=== PATIENT | female | born 2005 | race Two or more races ===

== ENCOUNTER 2024-06-27 17:10 | Emergency (ER) | payer MEDICAID ==
[~2024-06-27] VITALS: Ht 154.9 cm; Wt 100.0 kg
[2024-06-27 20:48] VITALS: BP 129/86; PULSE 103; RESP 18; TEMP 97.8; O2SAT 97
== END 2024-06-27 21:18 | disposition home or self-care (01) ==
LOC: ER 17:10
DX: M25.561 Pain in right knee (principal); Z88.1 Allergy status to other antibiotic agents; W23.0XXA Caught, crushed, jammed, or pinched between moving objects, initial encounter; Y93.89 Activity, other specified; Y92.89 Other specified places as the place of occurrence of the external cause; Y99.8 Other external cause status
CPT/HCPCS: 73562

== ENCOUNTER 2025-01-03 17:32 | Emergency (ER) | payer MEDICAID ==
[~2025-01-03] VITALS: Ht 152.4 cm; Wt 99.7 kg
[2025-01-03 18:36] VITALS: BP 160/94; PULSE 90; RESP 18; TEMP 98; O2SAT 97
--- NOTE | 2025-01-03 19:09 | ED.PDOC ---
Eye-HPI HPI Comments 19-year-old female who came to emergency room for earache. Patient states for the past week she has been experiencing left ear pain, with decrease in hearing, with noted blood oozing out of the left ear. No fever noted. Denies any trauma Chief Complaint: Earache Time Seen by MD: 19:07 Reviewed Notes: Nurses Notes Allergies: Coded Allergies: Azithromycin (Verified Allergy, Unknown, 06/27/24) Information Source: Patient Mode of Arrival: Ambulatory Timing: Hours Duration: Since onset, Days Quality: Pain, Hearing loss ENT Ear Exam: Blood, Perforated Past Medical History PAST MEDICAL HISTORY: Denies Surgical History: Denies all surgeries DIPLOMA DENTAL ASSISTANT History: Denies all DIPLOMA DENTAL ASSISTANT Hx Family History Family History: Reviewed,noncontributory to illness Social History Smoker: Non-Smoker Alcohol: Denies ETOH Use Drugs: Denies Drug Use Lives In: Home Constitutional: denies: chills, diaphoresis, fatigue, fever, malaise, sweats, weakness, others EENTM: reports: ear bleeding, ear pain; denies: blurred vision, double vision, ear discharge, ear drainage, ear ringing, eye pain, eye redness, hearing loss, mouth pain, mouth swelling, nasal discharge, nose bleeding, nose congestion, nose pain, photophobia, tearing, throat pain, throat swelling, voice changes, others Respiratory: denies: cough, hemoptysis, orthopnea, SOB at rest, shortness of breath, SOB with excertion, stridor, wheezing, others Cardiovascular: denies: chest pain, dizzy spells, diaphoresis, Dyspnea on exertion, edema, irregular heart beat, left arm pain, lightheadedness, palpitati ons, PND, syncope, others Gastrointestinal: denies: abdomen distended, abdominal pain, blood streaked bowels, constipated, diarrhea, dysphagia, difficulty swallowing, hematemesis, melena, nausea, poor appetite, poor fluid intake, rectal bleeding, rectal pain, vomiting, others Genitourinary: denies: abnormal vagina bleeding, burning, dyspareunia, dysuria, flank pain, frequency, hematuria, incontinence, pain, , vagina discharge, urgency, others Neurological: denies: dizziness, fainting, headache, left sided numbness, left sided weakness, numbness, paresthesia, pre-existing deficit, right sided numbness, right sided weakness, seizure, speech problems, tingling, tremors, weakness, others Musculoskeletal: denies: back pain, gout, joint pain, joint swelling, muscle pain, muscle stiffness, neck pain, others Integumetry: denies: bruises, change in color, change in hair/nails, dryness, laceration, lesions, lumps, rash, wounds, others Allergic/Immunocompromised: denies: Difficulty Healing, Frequent Infections, Hives, Itching, others Hematologic/Lymphatic: denies: anemia, blood clots, easy bleeding, easy bruisin g, swollen glands, others Endocrine: denies: excessive hunger, excessive sweating, excessive thirst, excessive urination, flushing, intolerance to cold, intolerance to heat, unexplained weight gain, unexplained weight loss, others Psychiatric: denies: anxiety, bipolar disorder, depression, hopeless, panic disorder, schizophrenia, sleepless, suicidal, others Physical Exam General Appearance: No Apparent Distress, Normal HEENT: Normal ENT Inspection, Pharynx Normal, TMs Normal Neck: Full Range of Motion, Non-Tender, Normal, Normal Inspection Respiratory: Chest Non-Tender, Lungs Clear, No Accessory Muscle Use, No Respir atory Distress, Normal Breath Sounds Cardiovascular: No Edema, No JVD, No Murmur, No Gallop, Normal Peripheral Pulses, Regular Rate/Rhythm Breast Exam: Deferred Gastrointestinal: No Organomegaly, Non Tender, No Pulsatile Mass, Normal Bowel Sounds, Soft Genitalia: Deferred Pelvic: Deferred Rectal: Deferred Extremities: No calf tenderness, Normal capillary refill, Normal inspection, Normal range of motion, Non-tender, No pedal edema Musculoskeletal : Apperance: Normal Neurologic: Alert, 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 Was a procedure done?: No EENT DIFF Eye: Other Ear: Cerumen Impaction, Foreign Body, Otitis Externa, Otitis Media, Perforation X-Ray, Labs, Meds, VS Vital Signs Date Time Temp Pulse Resp B/P (MAP) Pulse Ox O2 Delivery O2 Flow Rate FiO2 01/03/25 18:36 98.0 90 18 160/94 (116) 97 Time of 1ST Reevaluation: 19:05 Reevaluation 1ST: Unchanged Patient Education/Counseling: Diagnosis, Treatment Family Education/Counseling: No Family Present Departure 1 Departure Time of Disposition: 19:23 (Patient with a acute otitis media. We will discharge patient with outpatient antibiotic) Impression: Primary Impression: Otitis media Qualified Codes: H66.012 - Acute suppurative otitis media with spontaneous rupture of ear drum, left ear Disposition: HOME / SELF CARE / HOMELESS Condition: Stable Additional Instructions: You have an ear infection with a ruptured eardrum. You were prescribed antibiotics. Please take as directed. For pain you can take the followinam: Ibuprofen 400mg with food Noon: Acetaminophen 1000mg 4pm: Ibuprofen 400mg with food 8pm: Acetaminophen 1000mg You should follow up with your regular doctor within one week to ensure you are doing better. If your symptoms worsen or you have any other concerns then please return to the ER. e-Prescriptions Amoxicillin & Pot Clavulanate (AUGMENTIN TABLET) 875 Mg Tb 875 MG PO BID for 7 Days, #14 TAB Prov: HANNAH AVILES MD 01/03/25 Discharged With: Self Critical Care Note Critical Care Time?: No Stability Stability form required: No Heart Score Heart Score: Heart Score Response (Comments) Value History N/A 0 EKG N/A 0 Age N/A 0 Risk Factors N/A 0 Troponin N/A 0 Total 0 I personally scribed for HANNAH AVILES MD ([email or web address]) on 01/03/25 at 19:09. Electronically submitted by Baltazar Arizmendi [email or web address]). I personally scribed for HANNAH AVILES MD ([email or web address]) on 01/03/25 at 19:14. Heidi ctronically submitted by Baltazar Arizmendi ([email or web address]). HANNAH AVILES MD Jan 03, 2025 19:09
[2025-01-03] MEDS ORDERED: AUG875T PO (19:24)
== END 2025-01-03 19:40 | disposition home or self-care (01) ==
LOC: ER 17:32
DX: H66.92 Otitis media, unspecified, left ear (principal); Z88.1 Allergy status to other antibiotic agents

== ENCOUNTER 2025-01-16 12:16 | Emergency (ER) | payer MEDICAID ==
[~2025-01-16 12:16] MED LIST: AUG875T PO
== END 2025-01-16 12:29 | disposition left against medical advice (07) ==
LOC: ER 12:16
DX: Z76.0 Encounter for issue of repeat prescription (principal); Z53.21 Procedure and treatment not carried out due to patient leaving prior to being seen by health care provider

== ENCOUNTER 2025-04-06 16:45 | Emergency (ER) | payer MEDICAID ==
[~2025-04-06] VITALS: Ht 152.4 cm; Wt 99.9 kg
[2025-04-06] MEDS ORDERED: METH4PAK PO (18:27)
[2025-04-06] MEDS ORDERED: CEFD300C2 PO (18:27)
[2025-04-06] MEDS ORDERED: ALBUAER3 IN (18:27)
--- NOTE | 2025-04-06 18:28 | ED.PDOC ---
Eye-HPI HPI Comments THIS IS A 20-YEAR-OLD FEMALE PRESENTS TO THE ED CHIEF COMPLAINT COLD-LIKE SYMPTOMS COUGH AND LEFT EAR PAIN. PATIENT REPORTS LEFT EAR INFECTION OVER 2 MONTHS AGO SHE FEELS IT HAS NOT RESOLVED SINCE. OVER THE PAST 1 WEEK SHE HAS BEEN HAVING COUGH RUNNY NOSE AND WHEEZING. SHE REPORTS CHILLS BUT DENIES ANY FEVERS MEASURED AT HOME. SHE DOES NOTE HISTORY OF ASTHMA A CHILD DENIES HISTORY OF PNEUMONIA NOTES NO CHEST PAIN DIFFICULTY BREATHING SHORTNESS OF BREATH NAUSEA, VOMITING, ABDOMINAL PAIN RECENT TRAVEL OR RECENT KNOWN ILL CONTACTS. Chief Complaint: Flu like Time Seen by MD: 18:03 Primary Care Provider: NONE Reviewed Notes: Nurses Notes, Medications, Allergies Allergies: Coded Allergies: Azithromycin (Verified Allergy, Unknown, 06/27/24) Home Meds Active Scripts Amoxicillin & Pot Clavulanate (AUGMENTIN TABLET) 875 Mg Tb, 875 MG PO BID for 7 Days, #14 TAB Prov:HANNAH AVILES MD 01/03/25 Information Source: Patient Mode of Arrival: Ambulatory Past Medical History PAST MEDICAL HISTORY: Denies Surgical History: Denies all surgeries REFLEXOLOGIST History: Denies all REFLEXOLOGIST Hx Family History Family History: Reviewed,noncontributory to illness Social History Smoker: Non-Smoker Alcohol: Denies ETOH Use Drugs: Denies Drug Use Lives In: Home Constitutional: reports: chills; denies: diaphoresis, fatigue, fever, malaise, sweats, weakness, others EENTM: reports: ear pain, nasal discharge; denies: blurred vision, double vision, ear bleeding, ear discharge, ear drainage, ear ringing, eye pain, eye redness, hearing loss, mouth pain, mouth swelling, nose bleeding, nose congestion, nose pain, photophobia, tearing, throat pain, throat swelling, voice changes, others Respiratory: reports: cough, wheezing Cardiovascular: denies: chest pain, dizzy spells, diaphoresis, Dyspnea on exertion, edema, irregular heart beat, left arm pain, lightheadedness, palpitations, PND, syncope, others Gastrointestinal: denies: abdomen distended, abdominal pain, blood streaked bowels, constipated, diarrhea, dysphagia, difficulty swallowing, hematemesis, melena, nausea, poor appetite, poor fluid intake, rectal bleeding, rectal pain, vomiting, others Genitourinary: denies: abnormal vagina bleeding, burning, dyspareunia, dysuria, flank pain, frequency, hematuria, incontinence, pain, , vagina discharge, urgency, others Neurological: denies: dizziness, fainting, headache, left sided numbness, left sided weakness, numbness, paresthesia, pre-existing deficit, right sided numbness, right sided weakness, seizure, speech problems, tingling, tremors, weakness, others Musculoskeletal: denies: back pain, gout, joint pain, joint swelling, muscle pain, muscle stiffness, neck pain, others Integumetry: denies: bruises, change in color, change in hair/nails, dryness, laceration, lesions, lumps, rash, wounds, others Allergic/Immunocompromised: denies: Difficulty Healing, Frequent Infections, Hives, Itching, others Hematologic/Lymphatic: denies: anemia, blood clots, easy bleeding, easy bruising, swollen glands, others Endocrine: denies: excessive hunger, excessive sweating, excessive thirst, excessive urination, flushing, intolerance to cold, intolerance to heat, unexplained weight gain, unexplained weight loss, others Psychiatric: denies: anxiety, bipolar disorder, depression, hopeless, panic disorder, schizophrenia, sleepless, suicidal, others Physical Exam General Appearance: No Apparent Distress, Normal HEENT: Pharynx Normal, TM Abnormal (L) (MODERATE ERYTHEMA WITH BULGING TM INTACT NO NOTED DRAINAGE EAR CANAL CLEAR. 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 Was a procedure done?: No EENT DIFF Eye: N/A Ear: Cerumen Impaction, Foreign Body, Otitis Externa, Barotrauma, Otitis Media, Perforation, Dental, Pharyngitis X-Ray, Labs, Meds, VS Vital Signs Date Time Temp Pulse Resp B/P (MAP) Pulse Ox O2 Delivery O2 Flow Rate FiO2 04/06/25 17:32 18 96 Room Air* 0 21 04/06/25 17:28 97.7 96 18 140/88 (105) 96 97.7 X-Ray, Labs, Meds, VS Comment LIKELY BACTERIAL SCRIPT TRIAL OF CEFDINIR, MEDROL DOSEPAK AN ALBUTEROL INHALER FOR THE BRONCHITIS AND RHONCHI AND WHEEZING.. ADVISED TO TAKE MEDICATIONS PRESCRIBED SIDE EFFECTS DISCUSSED. REST INCREASE P.O. FLUIDS WITH ELECTROLYTES [id number] TYLENOL OR MOTRIN NEEDED FOR PAIN OR FEVER PER LABELED DOSING INSTRUCTIONS. FOLLOW UP WITH YOUR PCP IN 2-3 DAYS NECESSARY. ER RETURN PRECAUTIONS GIVEN PATIENT INDICATES UNDERSTANDING AGREES WITH DISCHARGE PLAN OF CARE. Time of 1ST Reevaluation: 18:10 Reevaluation 1ST: Unchanged Time of 2ND Reevaluation: 18:25 Reevaluation 2ND: Improved Patient Education/Counseling: Diagnosis, Treatment, Prognosis, Need For Follow Up Family Education/Counseling: No Family Present Departure 1 Departure Time of Disposition: 18:25 Impression: Primary Impression: Otitis media Qualified Codes: H66.90 - Otitis media, unspecified, unspecified ear Additional Impression: Bronchitis Disposition: 01 HOME / SELF CARE / HOMELESS Condition: Stable e-Prescriptions Albuterol Sulfate (VENTOLIN MDI) 90 Mcg Ih 90 MCG IN Q6HP PRN for 14 Days, #1 INHALER Prov: DIPESH ANTONY 04/06/25 Methylprednisolone (Medrol Dosepak) 4 Mg Monty 4 MG PO UD for 6 Days, #21 TAB UAD Prov: DIPESH ANTONY PAPER CAP MACHINE OPERATOR 04/06/25 Cefdinir (Cefdinir) 300 Mg Cap 1 CAP PO BID for 7 Days, #14 CAP Prov: DIPESH ANTONYP 04/06/25 Discharged With: Self Critical Care Note Critical Care Time?: No Stability Stability form required: DIPESH Armas April 06, 2025 18:28
[2025-04-06 18:51] VITALS: BP 125/78; PULSE 74; RESP 12; TEMP 98.5; O2SAT 99
== END 2025-04-06 18:50 | disposition home or self-care (01) ==
LOC: ER 16:45
DX: J40 Bronchitis, not specified as acute or chronic (principal); H66.92 Otitis media, unspecified, left ear; Z88.1 Allergy status to other antibiotic agents

== ENCOUNTER 2025-08-24 20:10 | Inpatient (IN) | payer MEDICAID ==
[~2025-08-24] VITALS: Ht 152.4 cm; Wt 104.3 kg
[2025-08-24] MEDS ORDERED: MORPHINE SULFATE 4 MG/ML SYR/VIAL IV ONE (20:45)
[2025-08-24 21:38] LABS: Albumin 4.2 g/dL (3.2-4.8); Anion Gap 13 (5-15); BUN/Creatinine Ratio 17.8 (10.0-20.0); Blood Urea Nitrogen 13 mg/dL (9-23); Calcium 9.3 mg/dL (8.7-10.4); Carbon Dioxide 23 mmol/L (20-31); Hematocrit 41.4 % (36.0-46.0); Hemoglobin 14.4 g/dL (12.2-16.2); Lipase 40 U/L (12-53); Mean Corpuscular Hemoglobin 27.4 pg (28.0-32.0); Mean Corpuscular Volume 78.7 fL (80.0-100.0); Nucleated Red Blood Cells % 0.1 %; Potassium 4.2 mmol/L (3.5-5.1); Total Protein 7.1 g/dL (5.7-8.2)
[2025-08-24 21:39] LABS: Bilirubin, Total 0.5 mg/dL (0.2-1.0)
[2025-08-24 21:42] LABS: Alanine Aminotransferase 58 U/L (7-40); Alkaline Phosphatase 133 U/L (46-116); Chloride 98 mmol/L (98-107); Sodium 134 mmol/L (136-145)
[2025-08-24 21:43] LABS: Glucose 405 mg/dL (74-106)
--- NOTE | 2025-08-24 21:55 | ED.PDOC ---
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 She reports that she has been experiencing abdominal pain and hematuria, she has a history of UTI and was diagnosed with a UTI and urgent care and was given antibiotics just 1 day before. She does not remember the antibiotics name. Also reports bilateral buttock swelling, for the past 5 days, which are draining serous/yellowish secretions. Denies fever and chills but reports feeling of warmth. Patient seen and examined in the ER. Blood glucose 400, A1c ordered. Bilateral buttock has multiple reddish swellings, on hair follicles, not draining actively region up to the level of thigh. Chief Complaint: Abdominal Pain Time Seen by MD: 20:45 Primary Care Provider: NONE Reviewed Notes: Nurses Notes Allergies: Coded Allergies: Azithromycin (Verified Allergy, Unknown, 06/27/24) Home Meds Active Scripts Amoxicillin & Pot Clavulanate (AUGMENTIN TABLET) 875 Mg Tb, 875 MG PO BID for 7 Days, #14 TAB Prov:HANNAH AVILES MD 01/03/25 Information Source: Patient Mode of Arrival: EMS Past Medical History PAST MEDICAL HISTORY: Denies Surgical History: Denies all surgeries SALES DRIVER History: Denies all SALES DRIVER Hx Family History Family History: Reviewed,noncontributory to illness Social History Smoker: Non-Smoker Alcohol: Denies ETOH Use Drugs: Denies Drug Use Lives In: Home Constitutional: reports: fatigue EENTM: denies: blurred vision, double vision, ear bleeding, ear discharge, ear drainage, ear pain, ear ringing, eye pain, eye redness, hearing loss, mouth marisela n, mouth swelling, nasal discharge, nose bleeding, nose congestion, nose pain, photophobia, tearing, throat pain, throat swelling, voice changes, others Respiratory: denies: cough, hemoptysis, orthopnea, SOB at rest, shortness of breath, SOB with excertion, stridor, wheezing, others Cardiovascular: denies: chest pain, dizzy spells, diaphoresis, Dyspnea on exertion, edema, irregular heart beat, left arm pain, lightheadedness, palpitations, PND, syncope, others Gastrointestinal: reports: abdominal pain Genitourinary: reports: hematuria Neurological: denies: dizziness, fainting, headache, left sided numbness, left sided weakness, numbness, paresthesia, pre-existing deficit, right sided numbness, right sided weakness, seizure, speech problems, tingling, tremors, weakness, others Musculoskeletal: denies: back pain, gout, joint pain, joint swelling, muscle pain, muscle stiffness, neck pain, others Integumetry: denies: bruises, change in color, change in hair/nails, dryness, laceration, lesions, lumps, rash, wounds, others Allergic/Immunocompromised: denies: Difficulty Healing, Frequent Infections, Hives, Itching, others Hematologic/Lymphatic: denies: anemia, blood clots, easy bleeding, easy bruisi ng, swollen glands, others Endocrine: denies: excessive hunger, excessive sweating, excessive thirst, exce ssive urination, flushing, intolerance to cold, intolerance to heat, unexplained weight gain, unexplained weight loss, others Psychiatric: denies: anxiety, bipolar disorder, depression, hopeless, panic disorder, schizophrenia, sleepless, suicidal, others Physical Exam General Appearance: No Apparent Distress, Normal HEENT: NOT DONE Neck: NOT DONE Respiratory: No Accessory Muscle Use, No Respiratory Distress, Normal Breath Sounds Cardiovascular: Regular Rate/Rhythm Breast Exam: Deferred Gastrointestinal: No Organomegaly, Non Tender, Normal Bowel Sounds Genitalia: Deferred Pelvic: Other (Bilateral buttock has multiple reddish swellings, on hair follicles, not draining actively region up to the level of thigh.) Rectal: Deferred Extremities: Non-tender, Other (Nonpitting edema) Neurologic: Other (Bilateral facial paralysis noticed on examination) Cerebellar Function: NOT DONE Reflexes: NOT DONE Skin: Rash Lymphatic: NOT DONE Was a procedure done? Was a procedure done?: No GI differential Dx Differential Diagnosis: Gastritis/PUD, UTI, Electrolyte Imbalance X-Ray, Labs, Meds, VS Vital Signs Date Time Temp Pulse Resp B/P (MAP) Pulse Ox O2 Delivery O2 Flow Rate FiO2 08/24/25 22:06 98.6 110 20 148/107 (121) 97 98.6 08/24/25 20:15 98.3 99 16 136/86 95 98.3 Lab Test 08/24/25 22:29 08/24/25 20:58 Range/Units POC Glucose 326 H 70-106 mg/dl White Blood Count 8.9 4.4-10.8 10^3/uL Red Blood Count 5.26 H 4.0-5.20 10^6/uL Hemoglobin 14.4 12.2-16.2 g/dL Hematocrit 41.4 36.0-46.0 % Mean Corpuscular Volume 78.7 L 80.0-100.0 fL Mean Corpuscular Hemoglobin 27.4 L 28.0-32.0 pg Mean Corpuscular Hemoglobin Concent 34.8 32.0-36.0 g/dL Red Cell Distribution Width 13.1 11.8-14.3 % Platelet Count 320 140-450 10^3/uL Mean Platelet Volume 8.5 6.9-10.8 fL Neutrophils (%) (Auto) 69.7 37.0-80.0 % Lymphocytes (%) (Auto) 24.5 10.0-50.0 % Monocytes (%) (Auto) 4.3 0.0-12.0 % Eosinophils (%) (Auto) 0.9 0.0-7.0 % Basophils (%) (Auto) 0.6 0.0-2.0 % Neutrophils # (Auto) 6.2 1.6-8.6 10 ^3/uL Lymphocytes # (Auto) 2.2 0.4-5.4 10 ^3/uL Monocytes # (Auto) 0.4 0-1.3 10 ^3/uL Eosinophils # (Auto) 0.1 0-0.8 10 ^3/uL Basophils # (Auto) 0.1 0-0.2 10 ^3/uL Nucleated Red Blood Cells 0.1 % Prothrombin Time Pending Prothrombin Time INR Pending Activated Partial Thromboplast Time Pending Sodium Level 134 L 136-145 mmol/L Potassium Level 4.2 3.5-5.1 mmol/L Chloride Level 98 98-107 mmol/L Carbon Dioxide Level 23 20-31 mmol/L Anion Gap 13 5-15 Blood Urea Nitrogen 13 9-23 mg/dL Creatinine 0.73 0.550-1.02 mg/dL Glomerular Filtration Rate Calc 119 >90 mL/min BUN/Creatinine Ratio 17.8 10.0-20.0 Serum Glucose 405 *H 74-106 mg/dL Hemoglobin A1c 10.5 H <5.7 % A1C Calcium Level 9.3 8.7-10.4 mg/dL Phosphorus Level Pending Magnesium Level Pending Total Bilirubin 0.5 0.2-1.0 mg/dL Aspartate Amino Transferase (AST) 29 13-40 U/L Alanine Aminotransferase (ALT) 58 H 7-40 U/L Alkaline Phosphatase 133 H 46-116 U/L Total Protein 7.1 5.7-8.2 g/dL Albumin 4.2 3.2-4.8 g/dL Triglycerides Level Pending Cholesterol Level Pending LDL Cholesterol Pending HDL Cholesterol Pending Lipase Pending Thyroid Stimulating Hormone (TSH) Pending Current Medications Medications (Trade) Dose Ordered Sig/Anne Route Start Time Stop Time Status Last Admin Ondansetron HCl (Zofran) 4 mg ONCE ONCE IV 08/24/25 20:45 08/24/25 20:46 DC 08/24/25 22:21 Sodium Chloride 1,000 ml @ 1,000 mls/hr Q1H ONCE IVB 08/24/25 20:45 08/24/25 21:44 DC 08/24/25 22:11 Insulin Human Regular (InsuLIN R) 2 units ONCE ONCE SC 08/24/25 22:00 08/24/25 22:04 DC 08/24/25 22:46 Ketorolac Tromethamine (Toradol Injection) 15 mg ONCE ONCE IV 08/24/25 22:30 08/24/25 22:31 DC 08/24/25 22:46 Time of 1ST Reevaluation: 00:00 Reevaluation 1ST: Unchanged Patient Education/Counseling: Diagnosis, Treatment Family Education/Counseling: No Family Present SEPSIS Sepsis Screen Date sepsis recognized/suspect: Aug 24, 2025 Time Sepsis recognized/suspect: 2012 Recent Procedure: No On Antibiotic Therapy: No Respiratory Rate >20: No Heart Rate >90: No Temp<36 C (96.8 F) or >38.3 C: No SBP <90 or MAP <65 mmHG: No New Acute Mental Status Change: No Is the patient on CPAP, BIPAP,: No Physician Orders Test, Urine (08/24/25 20:35) Vital Signs Date Time Temp Pulse Resp B/P (MAP) Pulse Ox O2 Delivery O2 Flow Rate FiO2 08/24/25 22:06 98.6 110 20 148/107 (121) 97 98.6 08/24/25 20:15 98.3 99 16 136/86 95 98.3 Laboratory Tests Test 08/24/25 20:58 White Blood Count 8.9 10^3/uL (4.4-10.8) Medications Medications Dose Ordered Sig/Anne Route Start Time Stop Time Status Last Admin Dose Admin Insulin Human Regular 2 units ONCE ONCE SC 08/24/25 22:00 08/24/25 22:04 DC 08/24/25 22:46 Ketorolac Tromethamine 15 mg ONCE ONCE IV 08/24/25 22:30 08/24/25 22:31 DC 08/24/25 22:46 Ondansetron HCl 4 mg ONCE ONCE IV 08/24/25 20:45 08/24/25 20:46 DC 08/24/25 22:21 Sodium Chloride 1,000 ml @ 1,000 mls/hr Q1H ONCE IVB 08/24/25 20:45 08/24/25 21:44 DC 08/24/25 22:11 Departure 1 Departure Time of Disposition: 00:10 Impression: Primary Impression: Urinary tract infection Additional Impressions: Newly diagnosed diabetes Rash Disposition: ADMITTED INPATIENT Condition: Stable Comments Patient will be admitted to this facility for workup of rash, new onset diabetes mellitus and possible UTI IV Zosyn administered once Critical Care Note Critical Care Time?: No Stability Stability form required: No Heart Score Heart Score: Heart Score Response (Comments) Value History N/A 0 EKG N/A 0 Age <45 0 Risk Factors 1 or 2 risk factors 1 Troponin N/A 0 Total 1 LINWOOD OLIVEROS RESIDENT Aug 24, 2025 21:55
[2025-08-24] MEDS: SODIUM CHLORIDE 0.9% 1,000 ML IVB ONE (22:11)
[2025-08-24] MEDS: ONDANSETRON HCL 4 MG/2 ML VIAL IV ONE (22:21)
[2025-08-24] MEDS: InsuLIN REG 1unit/0.01ml Soln (100units/ml) SC ONE (22:46)
[2025-08-24] MEDS: KETOROLAC TROMETH 30 MG/ML 1ML VIAL IV ONE (22:46)
--- NOTE | 2025-08-24 23:38 | DVHHPRES ---
History of Present Illness Resident Creating Document: BABITA WALLS RESIDENT History of Present Illness Lita Delgado a 20-year-old female patient who presents to the ED with chief complaint of nausea three days before her admission, which then progressed the day of her admission to vomiting with non bloody emesis (food content), fatigue, generalized weakness, intense headache 10/10 diarrhea isolated episodes of diarrhea (nonbloody nor melena, brown), sweaty, chills, with upper quadrant and epigastric abdominal pain. Patient also complains of bilateral buttock non healing wounds, prompting her visit to ED. Denies any other associated symptoms. Past medical history: Moebius syndrome, asthma, depression Surgical history: Smile surgery, bilateral foot surgery. 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 Presents oligomenorrhea (her cycles lasts within 2-3 months). Family history: Great grandmother had unknown cancer, grandfather had [place] Social history: Lives in [place] with family (she is the caregiver of her grandmother and grandfather, her next of kin would be grandmother). Denies current tobacco, alcohol and other drug abuse Allergies: Erythromycin (anaphylaxis) Home medication: Sertraline 25 mg p.o. daily Patient seen and examined at bedside. Currently has no new complaints. She will be admitted for further evaluation Past Medical History Per HPI Past Surgical History Per HPI Family History Per HPI Past Social History Per HPI Review of Systems Review of Systems Per HPI Allergies: Coded Allergies: Azithromycin (Verified Allergy, Unknown, 06/27/24) Exam Vital Signs Vital Signs Date Time Temp Pulse Resp B/P (MAP) Pulse Ox O2 Delivery O2 Flow Rate FiO2 08/24/25 22:06 98.6 110 20 148/107 (121) 97 98.6 Exam Patient lying in bed, in no acute distress General: Lucid, afebrile, mucosae are dry. Facies of Moebius syndrome (paralyzed facial expression). Cardiovascular: Normal S1 and S2. No murmurs, gallops or rubs Respiratory: Normal ventilation mechanics. Clear lung sounds on auscultation Abdomen: Soft, nontender, no organomegaly, normal bowel sounds : Positive CVA tenderness on percussion MSK/skin: Mobilizes 4 limbs. Skin is dry and warm Neurological: Oriented in 3 spheres. No motor no sensitive deficits. Pupils are isocoric and reactive Labs/Xrays Labs Test 08/24/25 22:29 08/24/25 20:58 Range/Units POC Glucose 326 H 70-106 mg/dl White Blood Count 8.9 4.4-10.8 10^3/uL Red Blood Count 5.26 H 4.0-5.20 10^6/uL Hemoglobin 14.4 12.2-16.2 g/dL Hematocrit 41.4 36.0-46.0 % Mean Corpuscular Volume 78.7 L 80.0-100.0 fL Mean Corpuscular Hemoglobin 27.4 L 28.0-32.0 pg Mean Corpuscular Hemoglobin Concent 34.8 32.0-36.0 g/dL Red Cell Distribution Width 13.1 11.8-14.3 % Platelet Count 320 140-450 10^3/uL Mean Platelet Volume 8.5 6.9-10.8 fL Neutrophils (%) (Auto) 69.7 37.0-80.0 % Lymphocytes (%) (Auto) 24.5 10.0-50.0 % Monocytes (%) (Auto) 4.3 0.0-12.0 % Eosinophils (%) (Auto) 0.9 0.0-7.0 % Basophils (%) (Auto) 0.6 0.0-2.0 % Neutrophils # (Auto) 6.2 1.6-8.6 10 ^3/uL Lymphocytes # (Auto) 2.2 0.4-5.4 10 ^3/uL Monocytes # (Auto) 0.4 0-1.3 10 ^3/uL Eosinophils # (Auto) 0.1 0-0.8 10 ^3/uL Basophils # (Auto) 0.1 0-0.2 10 ^3/uL Nucleated Red Blood Cells 0.1 % Sodium Level 134 L 136-145 mmol/L Potassium Level 4.2 3.5-5.1 mmol/L Chloride Level 98 98-107 mmol/L Carbon Dioxide Level 23 20-31 mmol/L Anion Gap 13 5-15 Blood Urea Nitrogen 13 9-23 mg/dL Creatinine 0.73 0.550-1.02 mg/dL Glomerular Filtration Rate Calc 119 >90 mL/min BUN/Creatinine Ratio 17.8 10.0-20.0 Serum Glucose 405 *H 74-106 mg/dL Hemoglobin A1c 10.5 H <5.7 % A1C Calcium Level 9.3 8.7-10.4 mg/dL Total Bilirubin 0.5 0.2-1.0 mg/dL Aspartate Amino Transferase (AST) 29 13-40 U/L Alanine Aminotransferase (ALT) 58 H 7-40 U/L Alkaline Phosphatase 133 H 46-116 U/L Total Protein 7.1 5.7-8.2 g/dL Albumin 4.2 3.2-4.8 g/dL Lipase 40 12-53 U/L SEPSIS Sepsis Screen Date sepsis recognized/suspect: Aug 24, 2025 Time Sepsis recognized/suspect: 2012 Recent Procedure: No On Antibiotic Therapy: No Respiratory Rate >20: No Heart Rate >90: No Temp<36 C (96.8 F) or >38.3 C: No SBP <90 or MAP <65 mmHG: No New Acute Mental Status Change: No Is the patient on CPAP, BIPAP,: No Physician Orders Urinalysis (08/24/25 20:35) Test, Urine (08/24/25 20:35) Admit (08/24/25 23:31) Code Status (08/24/25 23:31) Acetaminophen Tablet (Tylenol Tablet) (08/24/25 23:45) Ondansetron Hcl (Zofran) (08/24/25 23:45) Complete Blood Count (08/25/25 04:00) Comprehensive Metabolic Panel (08/25/25 04:00) Npo (Nothing By Mouth) Diet (08/25/25 Breakfast) Morphine Sulfate Injection (08/24/25 23:45) Lovenox 40mg (08/25/25 10:10) Oxygen By Nasal Cannula (08/24/25 23:31) Stat Ekg For Chest Pain (08/24/25 23:31) Notify Of Changes From Base (08/24/25 23:31) Position Classification Specialist For 24 Hours (08/24/25 23:31) Emergency Dysrhythmia Protocol (08/24/25 23:31) Rhythm Strips Once Every Shift (08/24/25 23:31) Vitamin D, 25-Hydroxy (08/24/25 23:31) Vitamin B12 (08/24/25 23:31) Urinalysis (08/24/25 23:) Thyroid Stimulating Hormone (08/24/25:) PTPTT (08/24/25:) Phosphorus (08/24/25:) Magnesium (08/24/25:) Lipid Panel (08/24/25:) Lipase (08/24/25:) Lactic Acid W/ Reflex Order (08/24/25:) Hemoglobin A1c (08/24/25 23:) Drug Screen (08/24/25:) Abdomen Without Contrast (08/24/25) Vital Signs Date Time Temp Pulse Resp B/P (MAP) Pulse Ox O2 Delivery O2 Flow Rate FiO2 08/24/25 22:06 98.6 110 20 148/107 (121) 97 98.6 08/24/25 20:15 98.3 99 16 136/86 95 98.3 Laboratory Tests Test 08/24/25 20:58 White Blood Count 8.9 10^3/uL (4.4-10.8) Medications Medications Dose Ordered Sig/Anne Route Start Time Stop Time Status Last Admin Dose Admin Insulin Human Regular 2 units ONCE ONCE SC 08/24/25 22:00 08/24/25 22:04 DC 08/24/25 22:46 2 UNITS Ketorolac Tromethamine 15 mg ONCE ONCE IV 08/24/25 22:30 08/24/25 22:31 DC 08/24/25 22:46 15 MG Ondansetron HCl 4 mg ONCE ONCE IV 08/24/25 20:45 08/24/25 20:46 DC 08/24/25 22:21 4 MG Sodium Chloride 1,000 ml @ 1,000 mls/hr Q1H ONCE IVB 08/24/25 20:45 08/24/25 21:44 DC 08/24/25 22:11 1,000 MLS/HR Assessment/Plan Assessment/Plan Cellulitis/Folliculitis of buttocks Probable reactive retroperitoneal lymphadenopathy Completed abdomen and pelvis CT which shows retroperitoneal lymphadenopathy moderately enlarged bilateral inguinal lymph nodes Probably reactive to cellulitis/folliculitis of buttocks Ordered wound care and wound culture Currently under empiric IV antibiotic (Ancef) Ruled out appendicitis/Cholecystitis/Nephrolithiasis Completed abdomen and pelvis CT which showed retroperitoneal lymphadenopathy and bilateral inguinal lymph nodes, no renal calculi or hydronephrosis and no other acute abdominal Ruled out UTI UA non inflammatory Newly diagnosed diabetes (Hemoglobin A1C: 10.5%) Currently on insulin sliding scale Due to increasing hemoglobin A1c, patient may benefit from insulin therapy as outpatient Transaminitis Hepatic steatosis ALT and alkaline phosphatase mildly elevated Abdomen and pelvis CT shows hepatic steatosis Monitor on CMP Gave advice on healthy lifestyle habits, including weight loss Morbid obesity Gave advice on healthy lifestyle habits Moebius syndrome - s/p reconstructive surgery Monitor Oligomenorrhea Follow up with compliance attorney specialist as outpatient Ruled out Asthma, no exacerbation Monitor Depression Continue sertraline 25 mg p.o. daily Goals of care discussed with patient for over 18 minutes: Full code status Discussed plan with Dr. Lehman, patient and nurses: Patient admitted to [facility]. Currently under empiric IV antibiotic, ordered wound culture. Continue monitoring. Plan discussed with: Patient, Other (Nurses) My Orders Orders - BABITA WALLS RESIDENT Procedure Category Date Status Time Admit ADMIT 08/24/25 Transmitted 23:31 Code Status CODE 08/24/25 Transmitted 23:31 Acetaminophen Tablet PHA 08/24/25 Transmitted (Tylenol Tablet) 23:45 Ondansetron Hcl PHA 08/24/25 Transmitted (Zofran) 23:45 Complete Blood Count LAB 08/25/25 Verified 04:00 Comprehensive LAB 08/25/25 Verified Metabolic Panel 04:00 Npo (Nothing By DIET 08/25/25 Transmitted Mouth) Diet Breakfast Morphine Sulfate PHA 08/24/25 Transmitted Injection 23:45 Lovenox 40mg PHA 08/25/25 Transmitted 10:10 Oxygen By Nasal RT 08/24/25 Transmitted Cannula 23:31 Stat Ekg For Chest [facility] 08/24/25 Transmitted Pain 23:31 Notify Md Of Changes [facility] 08/24/25 Transmitted From Base 23:31 Position Classification Specialist For NANCY 08/24/25 Transmitted 24 Hours 23:31 Emergency Dysrhythmia N[facility] 08/24/25 Transmitted Protocol 23:31 R[address] [facility] 08/24/25 Transmitted Every Shift 23:31 Vitamin D, 25-Hydroxy LAB 08/24/25 Transmitted 23:31 Vitamin B12 LAB 08/24/25 Transmitted 23:31 Urinalysis LAB 08/24/25 Transmitted 23:31 Thyroid Stimulating LAB 08/24/25 Transmitted Hormone 23:31 PTPTT LAB 08/24/25 Transmitted 23:31 Phosphorus LAB 08/24/25 Transmitted 23:31 Magnesium LAB 08/24/25 Transmitted 23:31 Lipid Panel LAB 08/24/25 Transmitted 23:31 Lipase LAB 08/24/25 Transmitted 23:31 Lactic Acid W/ Reflex LAB 08/24/25 Transmitted Order 23:31 Hemoglobin A1c LAB 08/24/25 Transmitted 23:31 Drug Screen LAB 08/24/25 Transmitted 23:[address] 08/24/25 Transmitted Contrast 23:31 Date of Service: Aug 24, 2025 Billing Provider: EDNA JACOBS MD Common Visit Codes: 65125-HVPSODS INP/OBS CARE (HIGH) Secondary Visit Codes: 15898-GTAZPWIF CARE PLAN 30 MINUTES BABITA WALLS RESIDENT Aug 24, 2025 23:38
[2025-08-24] MEDS ORDERED: MORPHINE SULFATE 4 MG/ML SYR/VIAL IV PRN (23:45)
[2025-08-25] MEDS: InsuLIN REG 1unit/0.01ml Soln (100units/ml) SC SCH
[2025-08-25] MEDS ORDERED: DEXTROSE (50%) 50ML SYRG IV PRN
[2025-08-25] MEDS: SODIUM CHLORIDE 0.9% 1,000 ML IV SCH
[2025-08-25 00:22] LABS: Magnesium 1.7 mg/dL (1.6-2.6)
[2025-08-25 00:23] LABS: HDL Cholesterol 43.0 mg/dL (40-59); INR 1.0 (0.9-1.15); Partial Thromboplastin Time 26.8 SEC (24.5-34.5); Prothrombin Time 10.6 sec (9.3-11.8)
[2025-08-25 00:25] LABS: Cholesterol 226.0 mg/dL (< 200); Triglycerides 292.0 mg/dL (< 150)
[2025-08-25 00:44] LABS: Lipase 41.0 U/L (12-53)
[2025-08-25 01:05] LABS: Mean Corpuscular Hemoglobin 26.8 pg (28.0-32.0)
[2025-08-25 01:06] LABS: Hematocrit 42.9 % (36.0-46.0); Hemoglobin 14.6 g/dL (12.2-16.2); Mean Corpuscular Volume 78.5 fL (80.0-100.0); Nucleated Red Blood Cells % 0.0 %
[2025-08-25 01:22] LABS: Anion Gap 11 (5-15); BUN/Creatinine Ratio 20.6 (10.0-20.0); Blood Urea Nitrogen 14 mg/dL (9-23); Calcium 9.1 mg/dL (8.7-10.4); Carbon Dioxide 24 mmol/L (20-31); Chloride 102 mmol/L (98-107); Potassium 4.3 mmol/L (3.5-5.1); Sodium 137 mmol/L (136-145); Total Protein 7.0 g/dL (5.7-8.2)
[2025-08-25 01:23] LABS: Albumin 4.1 g/dL (3.2-4.8); Bilirubin, Total 0.3 mg/dL (0.2-1.0)
[2025-08-25] MEDS: ceFAZolin 1GM/50ML 50 ML IV ONE (01:26)
[2025-08-25 01:28] LABS: Alanine Aminotransferase 56 U/L (7-40); Alkaline Phosphatase 133 U/L (46-116); Glucose 292 mg/dL (74-106)
[2025-08-25] MEDS: SODIUM CHLORIDE 0.9% 500 ML IV ONE (01:44)
--- NOTE | 2025-08-25 03:04 | DVH ---
Exam: CT ABDOMEN WITHOUT CONTRAST History: Rule out nephrolithiasis Comparison Study: None Technique: Multidetector spiral CT of the abdomen and pelvis was performed from lung bases to pubic s ymphysis. Imaging was performed without IV contrast. Axial, coronal and sagittal multiplanar reformat s were obtained from the axial data set by the technologist. Radiation Dose : 1. Abdomen/Pelvis: CTDIvol 25.47 mGy, DLP 1413.85 mGy*cm. Findings: Evaluation of solid organs is limited due to lack of intravenous contrast use. Lung Bases: No acute or significant lung base finding. Normal heart size. No pleural or pericardial effusion. Liver: The liver is normal in size. Hepatic steatosis. No focal lesions. Gallbladder and Biliary Tree: Unremarkable Spleen: Unremarkable Pancreas: The pancreas is grossly normal in appearance. Adrenal Glands: Unremarkable Kidneys: Kidneys are grossly normal without calculi or hydronephrosis. Bladder: Grossly unremarkable for degree of distention. Bowel: The stomach is grossly normal in appearance. Small bowel and colon are normal in caliber and d istribution. The appendix is normal. Ascites: Absent Lymphadenopathy: Shotty retroperitoneal lymphadenopathy and moderately enlarged bilateral inguinal ly mph nodes. Abdominal Wall and Mesentery: Unremarkable. Vasculature: The visualized abdominal aorta is normal in size and caliber. Evaluation of abdominal a nd pelvic vessels is limited due to lack of intravenous contrast. Pelvic Organs: Unremarkable Musculoskeletal: No aggressive focal bony lesions, acute fractures or dislocation. IMPRESSION: 1. No renal calculi or hydronephrosis. 2. Hepatic steatosis. 3. Shotty retroperitoneal lymphadenopathy and moderately enlarged bilateral inguinal lymph nodes. Radiation optimization: All CT scans at this facility use at least one of these dose optimization sugey hniques: automated exposure control mA and/or kV adjustment per patient size (includes targeted exam s where dose is matched to clinical indication) or iterative reconstruction.
[2025-08-25 03:10] LABS: Urine Protein, UAD Negative (Negative)
[2025-08-25 03:18] LABS: Amphetamine Screen, Urine Neg (NEGATIVE); Barbiturate Scree,Urine Neg (NEGATIVE); Benzodiazephine Screen, Urine Neg (NEGATIVE); Cannabinoid Screen, Urine Neg (NEGATIVE); Cocaine Screen, Urine Neg (NEGATIVE); Opiate Scree,Urine Neg (NEGATIVE); Phencyclidine Screen, Urine Neg (NEGATIVE)
[2025-08-25] MEDS: ACCU-CHEK COMFORT CURVE STRIP VI SCH (07:15)
[2025-08-25] MEDS: ceFAZolin 1GM/50ML 50 ML IV SCH (09:13)
[2025-08-25] MEDS: ONDANSETRON HCL 4 MG/2 ML VIAL IV PRN (09:14)
[2025-08-25] MEDS: ENOXAPARIN SOD 40 MG/0.4 ML SYRINGE SC SCH (13:16)
[2025-08-25] MEDS: SERTRALINE HCL 50 MG TAB PO ONE (13:16)
[2025-08-25] MEDS: ERGOCALCIFEROL 50,000 UNIT(1.25MG) CAP PO SCH (13:16)
--- NOTE | 2025-08-25 13:49 | DVH ---
CHEST RADIOGRAPH Indication: R/o PNA Technique: Single frontal view of the chest was obtained Comparison: None FINDINGS: Lines and Tubes: None Lungs: No focal consolidation. Pleura: No effusion. No pneumothorax. Cardiomediastinal contours: Unremarkable Bones: No acute osseous abnormality. IMPRESSION: 1. No acute cardiopulmonary disease.
--- NOTE | 2025-08-25 15:39 | DVHPNRES ---
Progress Note Date Seen: Aug 25, 2025 Resident Creating Document: MAINOR BRENNER RESIDENT Medical Necessity Reason Pt with a Central, PICC or Fol: No Subjective Review of Systems Lita Delgado a 20-year-old female patient who presents to the ED with chief complaint of nausea three days before her admission, which then progressed the day of her admission to vomiting with non bloody emesis (food content), fatigue, generalized weakness, intense headache 10/10 diarrhea isolated episodes of diarrhea (nonbloody nor melena, brown), sweaty, chills, with upper quadrant and epigastric abdominal pain. Patient also complains of bilateral buttock non healing wounds, prompting her visit to ED. Denies any other associated symptoms. Lab workup revealed hyperglycemia with blood sugar 405, HGB A1c 10.5, ALT 56, alkaline phosphatase 133, vitamin-D 19.9, triglyceride 292, LDL 158. CT abdomen and pelvis revealed- Hepatic steatosis. Shotty retroperitoneal lymphadenopathy and moderately enlarged bilateral inguinal lymph nodes. CXR no acute abnormality. Past medical history: Moebius syndrome, asthma, depression Surgical history: Smile surgery, bilateral foot surgery. 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 Presents oligomenorrhea (her cycles lasts within 2-3 months). Family history: Great grandmother had unknown cancer, grandfather had [place] Social history: Lives in [place] with family (she is the caregiver of her grandmother and grandfather, her next of kin would be grandmother). Denies current tobacco, alcohol and other drug abuse Allergies: Erythromycin (anaphylaxis) Home medication: Sertraline 25 mg p.o. daily Patient is seen today at bedside, labs and chart reviewed. Patient on insulin as prescribed. MRSA screening positive, ordered doxycycline and mupirocin. IV fluid. Objective vital signs Vital Sign Date Time Temp Pulse Resp B/P (MAP) Pulse Ox O2 Delivery O2 Flow Rate FiO2 08/25/25 13:14 75 16 141/96 (111) 95 08/25/25 09:03 97.9 97.9 medications Current Medications Medications Dose Ordered Sig/Anne Route Start Time Stop Time Status Last Admin Dose Admin Acetaminophen 325 mg Q4HP PRN PO 08/24/25 23:45 Ondansetron HCl 4 mg Q4HP PRN IV 08/24/25 23:45 08/25/25 09:14 4 MG Morphine Sulfate 2 mg Q4HPRN PRN IV 08/24/25 23:45 Enoxaparin Sodium 40 mg DAILY SC 08/25/25 10:00 08/25/25 13:16 40 MG Diagnostic Test (Pha) 1 strip Q6HR 08/25/25 00:00 08/25/25 07:18 1 STRIP Insulin Human Regular Q6HR SC 08/25/25 00:00 08/25/25 12:00 4 UNITS Dextrose 50 ml UD PRN IV 08/25/25 00:00 Sodium Chloride 1,000 ml @ 100 mls/hr Q10H IV 08/25/25 00:00 Cefazolin Sodium 50 ml @ 100 mls/hr Q8HR IV 08/25/25 06:00 08/25/25 09:13 100 MLS/HR Ergocalciferol 50,000 unit Q7D PO 08/25/25 12:30 08/25/25 13:16 50,000 UNIT Sertraline HCl 25 mg DAILY PO 08/26/25 10:00 Examination General examination- awake, alert, not in acute distress HEENT- PEERLA, no acute nasal discharge Cardiovascular- S1-S2 audible, rate and rhythm regular, no murmur Respiratory- CTAB, no wheeze or rhonchi Gastrointestinal-nontender, bowel sound+. Nondistended Musculoskeletal-no acute joint swelling or tenderness or redness Lower extremity- no leg edema Neurological- cranial nerves intact, no acute dysarthria or dysphagia Psychiatry- denies depression or SI or HI Skin- no acute rash or purpura laboratory and microbiology Laboratory Tests 08/25/25 00:42 Test 08/25/25 00:42 Range/Units Serum Glucose 292 H 74-106 mg/dL Microbiology Date/Time Source Procedure Growth Status 08/25/25 07:52 Nose MRSA Screen - Final Methicillin Resistant S.aureus Complete Problem List/Assessment/Plan Problem List/Assessment/Plan Assessment/Plan #Cellulitis/Folliculitis of buttocks #Probable reactive retroperitoneal lymphadenopathy -Completed abdomen and pelvis CT which shows retroperitoneal lymphadenopathy moderately enlarged bilateral inguinal lymph nodes, Probably reactive to cellulitis/folliculitis of buttocks -Ordered wound care and wound culture -Currently on doxycycline #Ruled out appendicitis/Cholecystitis/Nephrolithiasis Completed abdomen and pelvis CT which showed retroperitoneal lymphadenopathy and bilateral inguinal lymph nodes, no renal calculi or hydronephrosis and no other acute abdominal # suspected UTI UA non inflammatory #Newly diagnosed diabetes (Hemoglobin A1C: 10.5%) Currently on insulin sliding scale Monitor blood sugar #Transaminitis #Hepatic steatosis -ALT and alkaline phosphatase mildly elevated Abdomen and pelvis CT shows hepatic steatosis Monitor on CMP Gave advice on healthy lifestyle habits, including weight loss #Morbid obesity Gave advice on healthy lifestyle habits #Moebius syndrome - s/p reconstructive surgery Monitor #Oligomenorrhea Follow up with liquor store manager specialist as outpatient Ruled out #Asthma, no exacerbation Monitor #Depression Continue sertraline 25 mg p.o. daily Goals of care, Code status ; discussed with >15 minutes PUD prophylaxis: Pantoprazole DVT prophylaxis: Lovenox Plan discussed with Dr. Jiménez , nursing staff, Total time spent on patient evaluation, chart review, assessment and plan, discussion discussion >35 minutes Plan discussed with: Patient, Other (RN) My Orders My Orders Orders - MAINOR BRENNER Procedure Category Date Status Time Complete Blood Count LAB 08/26/25 Verified 04:00 Comprehensive LAB 08/26/25 Verified Metabolic Panel 04:00 Magnesium LAB 08/26/25 Verified 04:00 Date of Service: Aug 25, 2025 Billing Provider: MAINOR BRENNER MOHAMMED RESIDENT Aug 25, 2025 15:39
[2025-08-25] MEDS: DOXYCYCLINE 100MG/100ML 100 ML IV SCH (17:00)
[2025-08-25] MEDS: INSULIN LANTUS (GLARGINE) 1 /0.01ml (100units/ml) SC SCH (20:00)
[2025-08-26] MEDS: HYDROmorphone HCL 2 MG/ML VL/or syr IV PRN (01:03)
[2025-08-26 04:43] LABS: Hematocrit 41.4 % (36.0-46.0); Hemoglobin 14.2 g/dL (12.2-16.2); Mean Corpuscular Hemoglobin 27.3 pg (28.0-32.0); Mean Corpuscular Volume 79.3 fL (80.0-100.0); Nucleated Red Blood Cells % 0.1 %
[2025-08-26 04:56] LABS: Albumin 4.3 g/dL (3.2-4.8); Alkaline Phosphatase 78 U/L (46-116); Anion Gap 10 (5-15); BUN/Creatinine Ratio 17.1 (10.0-20.0); Blood Urea Nitrogen 13 mg/dL (9-23); Calcium 9.2 mg/dL (8.7-10.4); Carbon Dioxide 24 mmol/L (20-31); Chloride 102 mmol/L (98-107); Magnesium 2.2 mg/dL (1.6-2.6); Potassium 4.4 mmol/L (3.5-5.1); Sodium 136 mmol/L (136-145); Total Protein 7.6 g/dL (5.7-8.2)
[2025-08-26 04:57] LABS: Bilirubin, Total 0.5 mg/dL (0.2-1.0)
[2025-08-26 05:04] LABS: Alanine Aminotransferase 85 U/L (7-40); Glucose 210 mg/dL (74-106)
[2025-08-26] MEDS: MUPIROCIN 2% OINT 15gm or 22gm TOP SCH (05:27)
[2025-08-26] MEDS: SERTRALINE HCL 50 MG TAB PO SCH (10:25)
--- NOTE | 2025-08-26 13:09 | DVHDSRES ---
Discharge Summary Date of Admission Resident Creating Document: MAINOR BRENNER RESIDENT Aug 24, 2025 at 23:31 Date of Discharge: Aug 26, 2025 Admitting Diagnosis Cellulitis/Folliculitis of buttocks Probable reactive retroperitoneal lymphadenopathy Labs/Diagnostic Data: Laboratory Results Test 08/26/25 12:11 08/26/25 04:06 08/25/25 02:00 08/25/25 00:42 POC Glucose 205 mg/dl (70-106) White Blood Count 7.8 10^3/uL (4.4-10.8) Red Blood Count 5.22 10^6/uL (4.0-5.20) Hemoglobin 14.2 g/dL (12.2-16.2) Hematocrit 41.4 % (36.0-46.0) Mean Corpuscular Volume 79.3 fL (80.0-100.0) Mean Corpuscular Hemoglobin 27.3 pg (28.0-32.0) Mean Corpuscular Hemoglobin Concent 34.4 g/dL (32.0-36.0) Red Cell Distribution Width 13.3 % (11.8-14.3) Platelet Count 334 10^3/uL (140-450) Mean Platelet Volume 7.9 fL (6.9-10.8) Neutrophils (%) (Auto) 70.7 % (37.0-80.0) Lymphocytes (%) (Auto) 24.2 % (10.0-50.0) Monocytes (%) (Auto) 3.6 % (0.0-12.0) Eosinophils (%) (Auto) 1.0 % (0.0-7.0) Basophils (%) (Auto) 0.5 % (0.0-2.0) Neutrophils # (Auto) 5.5 10 ^3/uL (1.6-8.6) Lymphocytes # (Auto) 1.9 10 ^3/uL (0.4-5.4) Monocytes # (Auto) 0.3 10 ^3/uL (0-1.3) Eosinophils # (Auto) 0.1 10 ^3/uL (0-0.8) Basophils # (Auto) 0 10 ^3/uL (0-0.2) Nucleated Red Blood Cells 0.1 % Sodium Level 136 mmol/L (136-145) Potassium Level 4.4 mmol/L (3.5-5.1) Chloride Level 102 mmol/L (98-107) Carbon Dioxide Level 24 mmol/L (20-31) Anion Gap 10 (5-15) Blood Urea Nitrogen 13 mg/dL (9-23) Creatinine 0.76 mg/dL (0.550-1.02) Glomerular Filtration Rate Calc 114 mL/min (>90) BUN/Creatinine Ratio 17.1 (10.0-20.0) Serum Glucose 210 mg/dL (74-106) Calcium Level 9.2 mg/dL (8.7-10.4) Magnesium Level 2.2 mg/dL (1.6-2.6) Total Bilirubin 0.5 mg/dL (0.2-1.0) Aspartate Amino Transferase (AST) 63 U/L (13-40) Alanine Aminotransferase (ALT) 85 U/L (7-40) Alkaline Phosphatase 78 U/L (46-116) Total Protein 7.6 g/dL (5.7-8.2) Albumin 4.3 g/dL (3.2-4.8) Urine Color Light-yellow (Yellow) Urine Clarity Clear (Clear) Urine pH 5.0 (5.0-9.0) Urine Specific [place] 1.036 (1.001-1.035) Urine Protein Negative (Negative) Urine Ketones Negative (Negative) Urine Blood Negative /uL (Negative) Urine Nitrite Negative (Negative) Urine Bilirubin Negative (Negative) Urine Urobilinogen Normal mg/dL (Negative) Urine Leukocyte Esterase Negative /uL (Negative) Urine RBC 3 /hpf (0 - 4) Urine Microscopic WBC 5 /HPF (0-5) Urine Squamous Epithelial Cells Few /hpf (<5) Urine Bacteria None seen /hpf (None Seen) Urine Glucose 4+ mg/dL (Normal) Urine Test Negative (Negative) Urine Opiates Screen Neg (NEGATIVE) Urine Fentanyl Screen Neg (NEGATIVE) Urine Barbiturates Screen Neg (NEGATIVE) Urine Phencyclidine Screen Neg (NEGATIVE) Urine Amphetamines Screen Neg (NEGATIVE) Urine Benzodiazepines Screen Neg (NEGATIVE) Urine Cocaine Screen Neg (NEGATIVE) Urine Cannabinoids Screen Neg (NEGATIVE) Lactic Acid Level 1.9 mmol/L (0.4-2.0) Vitamin B12 Level 344 pg/mL (211-911) Vitamin D 25-Hydroxy 19.9 ng/mL (30.0-100) Beta HCG, Quantitative 0.2 mIU/mL (1.5-4.2) Test 08/24/25 20:58 Prothrombin Time 10.6 sec (9.3-11.8) Prothrombin Time INR 1.00 (0.9-1.15) Activated Partial Thromboplast Time 26.8 SEC (24.5-34.5) Hemoglobin A1c 10.5 % A1C (<5.7) Phosphorus Level 2.9 mg/dL (2.4-5.1) Triglycerides Level 292 mg/dL (< 150) Cholesterol Level 226 mg/dL (< 200) LDL Cholesterol 158 mg/dL (< 100) HDL Cholesterol 43 mg/dL (40-59) Lipase 41 U/L (12-53) Thyroid Stimulating Hormone (TSH) 0.98 uIU/mL (0.55-4.78) Other Laboratory Tests 08/26/25 04:06 Brief Hx & Hospital Course: Lita Shoemaker a 20-year-old female patient who presents to the ED with chief complaint of nausea three days before her admission, which then progressed the day of her admission to vomiting with non bloody emesis (food content), fatigue, generalized weakness, intense headache 10/10 diarrhea isolated episodes of diarrhea (nonbloody nor melena, brown), sweaty, chills, with upper quadrant and epigastric abdominal pain. Patient also complains of bilateral buttock non healing wounds, prompting her visit to ED. Denies any other associated symptoms. Lab workup revealed hyperglycemia with blood sugar 405, HGB A1c 10.5, ALT 56, alkaline phosphatase 133, vitamin-D 19.9, triglyceride 292, LDL 158. MRSA screening positive. CT abdomen and pelvis revealed- Hepatic steatosis. Shotty retroperitoneal lymphadenopathy and moderately enlarged bilateral inguinal lymph nodes. CXR no acute abnormality. Patient's relieved conservatively with IV antibiotic doxycycline and also insulin. Patient's symptoms improved. Patient is being discharged home with the doxycycline 100 mg p.o. b.i.d.. Also with metformin 500 mg p.o. b.i.d.. Patient was advised to follow up with the discharge clinic within 2 weeks and also follow up with the primary care physician. Patient's meds were sent to the pharmacy electronically. Patient was hemodynamically stable on discharge. patient is educated about diabetic diet Operations or Procedures [facility] [id number] [place] [id number] Ph: [phone] DIAGNOSTIC IMAGING Diagnostic Imaging Report : [id number] Signed PATIENT: LITA SHOEMAKER ACCT: [id number] UNIT: [id number] : 2005 LOC: OVERFLOW ROOM / BED: 1015-ERT / A AGE / SEX: 20 / F ADM STATUS: ADM IN SERVICE [id number] ORDERING PHYSICIAN: BABITA WALLS RESIDENT PROCEDURE(s): ABD2C - ABDOMEN WITHOUT CONTRAST REASON: Rule out nephrolithiasis ORDER NUMBER(s): [id number], ACCESSION NUMBER(s): [id number] Exam: CT ABDOMEN WITHOUT CONTRAST History: Rule out nephrolithiasis Comparison Study: None Technique: Multidetector spiral CT of the abdomen and pelvis was performed from lung bases to pubic symphysis. Imaging was performed without IV contrast. Axial, coronal and sagittal multiplanar reformats were obtained from the axial data set by the technologist. Radiation Dose : 1. Abdomen/Pelvis: CTDIvol 25.47 mGy, DLP 1413.85 mGy*cm. Findings: Evaluation of solid organs is limited due to lack of intravenous contrast use. Lung Bases: No acute or significant lung base finding. Normal heart size. No pleural or pericardial effusion. Liver: The liver is normal in size. Hepatic steatosis. No focal lesions. Gallbladder and Biliary Tree: Unremarkable Spleen: Unremarkable Pancreas: The pancreas is grossly normal in appearance. Adrenal Glands: Unremarkable Kidneys: Kidneys are grossly normal without calculi or hydronephrosis. Bladder: Grossly unremarkable for degree of distention. Bowel: The stomach is grossly normal in appearance. Small bowel and colon are normal in caliber and distribution. The appendix is normal. Ascites: Absent Lymphadenopathy: Shotty retroperitoneal lymphadenopathy and moderately enlarged bilateral inguinal lymph nodes. Abdominal Wall and Mesentery: Unremarkable. Vasculature: The visualized abdominal aorta is normal in size and caliber. Evaluation of abdominal and pelvic vessels is limited due to lack of intravenous contrast. Pelvic Organs: Unremarkable Musculoskeletal: No aggressive focal bony lesions, acute fractures or dislocation. IMPRESSION: 1. No renal calculi or hydronephrosis. 2. Hepatic steatosis. 3. Shotty retroperitoneal lymphadenopathy and moderately enlarged bilateral inguinal lymph nodes. Radiation optimization: All CT scans at this facility use at least one of these dose optimization techniques: automated exposure control mA and/or kV adjustment per patient size (includes targeted exams where dose is matched to clinical indication) or iterative reconstruction. ATED BY: MICHAEL LEO MD DICTATED DATE/TIME: 08/25/252 SIGNED BY: MICHAEL LEO MD SIGNED DATE/TIME: 08/25/25301 CC: [place] [id number] Ph: [phone] DIAGNOSTIC IMAGING Diagnostic Imaging Report : [id number] Signed PATIENT: LITA SHOEMAKER ACCT: [id number] UNIT: [id number] : 2005 LOC: OVERFLOW ROOM / BED: 1015-ERT / A AGE / SEX: 20 / F ADM STATUS: ADM IN SERVICE [id number] ORDERING PHYSICIAN: BABITA WALLS RESIDENT PROCEDURE(s): CXR1 - CHEST XRAY 1 VIEW REASON: R/o PNA ORDER NUMBER(s): [id number], ACCESSION NUMBER(s): [id number] CHEST RADIOGRAPH Indication: R/o PNA Technique: Single frontal view of the chest was obtained Comparison: None FINDINGS: Lines and Tubes: None Lungs: No focal consolidation. Pleura: No effusion. No pneumothorax. Cardiomediastinal contours: Unremarkable Bones: No acute osseous abnormality. IMPRESSION: 1. No acute cardiopulmonary disease. ATED BY: CHRYSTAL FIERRO Jr., DO DICTATED DATE/TIME: 08/25/251345 SIGNED BY: CHRYSTAL FIERRO Jr., DO SIGNED DATE/TIME: 08/25/251345 CC: Condition at Discharge: Stable Final Diagnosis/Problems List #Cellulitis/Folliculitis of buttocks #Probable reactive retroperitoneal lymphadenopathy # suspected gastroenteritis likely viral #Ruled out appendicitis/Cholecystitis/Nephrolithiasis # urinalysis negative for UTI #Newly diagnosed diabetes (Hemoglobin A1C: 10.5%) #Transaminitis #Hepatic steatosis #Morbid obesity #Moebius syndrome - s/p reconstructive surgery #Oligomenorrhea #Asthma, no exacerbation #Depression Discharge Disposition: Home Discharge Instruct/Medications Diet: Consistent carbohydrate Activity: No Restrictions, As Tolerated Follow Up/Referral: Please follow up with the discharge clinic as per schedule in 2 weeks Please follow up with the primary care physician in 1-2 weeks Medications: Metformin 500 mg p.o. b.i.d. Doxycycline 100 mg p.o. b.i.d. for 7 days Mupirocin ointment as prescribed Please resume other home medications Ibuprofen 400 mg q.8h PRN as prescribed Pantoprazole 40 mg p.o. daily Scheduled Amoxicillin & Pot Clavulanate (Augmentin Tablet), 875 MG PO BID Doxycycline (Monohydrate) (Doxycycline), 100 MG PO BID Ibuprofen (Ibuprofen), 1 TAB PO Q6HPRN Metformin Hydrochloride (Metformin Hcl), 1 TAB PO BID Mupirocin Calcium (Topical) (Mupirocin), 2 % EX BID Pantoprazole Sodium Sesquihydr (Pantoprazole Sodium), 40 MG PO DAILY Scheduled PRN Ondansetron Odt 4MG Tab (Zofran Po), 4 MG PO Q6HP PRN Discharge Statement: "Patient was advised to return to the ER or call 911 if any headaches, dizziness, shortness of breath, chest pain, abdominal pain, bleeding, fevers, or worsening of medical condition. Patient was counseled about treatment plan, medications, possible side effects, patientverbalized understanding. All questions were answered to the best of my ability. This discharge took greater then 30 minutes in planning, reviewing documentation, counseling the patient, and discussing with other team members." ASSESSMENT ASSESSMENT Assessment Date of Service: Aug 26, 2025 Billing Provider: DIEGO WHEELER MD, MOHAMMED RESIDENT Aug 26, 2025 13:09
[2025-08-26 14:15] VITALS: BP 146/102; PULSE 88; RESP 17; TEMP 98.2; O2SAT 98
[2025-08-26] MEDS ORDERED: DOXY100C79 PO ×2 (14:24→16:22)
[2025-08-26] MEDS ORDERED: METF-370 PO ×2 (14:24→16:22)
[2025-08-26] MEDS ORDERED: MUPI2CRE17 EX (14:26)
[2025-08-26] MEDS ORDERED: PANT40T PO ×2 (14:59→16:22)
[2025-08-26] MEDS ORDERED: IBUP-1453 PO ×3 (14:59→16:22)
[2025-08-26 15:11] VITALS: PULSE 84; RESP 19; O2SAT 98
[2025-08-26] MEDS ORDERED: ZOFR4T PO (16:12)
[2025-08-26 20:00] VITALS: PULSE 91; PULSE 92; RESP 18; O2SAT 97
[2025-08-26 21:00] VITALS: BP 107/73; PULSE 91; RESP 18; TEMP 97.6; O2SAT 97
[2025-08-27] VITALS (7 sets, daily range): BP systolic 115–137; BP diastolic 79–88; PULSE 83–90; RESP 16–18; TEMP 36.3; O2SAT 94–99
[2025-08-27] MEDS: ACETAMINOPHEN 325 MG TAB PO PRN (05:00)
[2025-08-27] MEDS ORDERED: MUPI2CRE17 EX (06:45)
[2025-08-27 09:05] LABS: Hematocrit 39.9 % (36.0-46.0); Hemoglobin 13.5 g/dL (12.2-16.2); Mean Corpuscular Hemoglobin 26.7 pg (28.0-32.0); Mean Corpuscular Volume 78.8 fL (80.0-100.0); Nucleated Red Blood Cells % 0.1 %
[2025-08-27 09:21] LABS: Albumin 4.0 g/dL (3.2-4.8); Alkaline Phosphatase 71 U/L (46-116); Anion Gap 10 (5-15); BUN/Creatinine Ratio 21.7 (10.0-20.0); Bilirubin, Total 0.7 mg/dL (0.2-1.0); Blood Urea Nitrogen 15 mg/dL (9-23); Calcium 9.1 mg/dL (8.7-10.4); Carbon Dioxide 28 mmol/L (20-31); Chloride 101 mmol/L (98-107); Glucose 143 mg/dL (74-106); Magnesium 1.9 mg/dL (1.6-2.6); Potassium 3.8 mmol/L (3.5-5.1); Sodium 139 mmol/L (136-145); Total Protein 7.0 g/dL (5.7-8.2)
[2025-08-27 09:22] LABS: Alanine Aminotransferase 88 U/L (7-40)
--- NOTE | 2025-08-27 17:02 | DVHPNRES ---
Progress Note Date Seen: Aug 27, 2025 Resident Creating Document: MAINOR BRENNER Medical Necessity Reason Pt with a Central, PICC or Fol: No Subjective Review of Systems Patient is seen today at bedside, labs and chart reviewed. Physical therapy evaluation was done, as per physical therapy patient is good to go. Patient is being discharged today. Transportation has been arranged. Objective vital signs Vital Sign Date Time Temp Pulse Resp B/P (MAP) Pulse Ox O2 Delivery O2 Flow Rate FiO2 08/27/25 14:32 36.3 88 18 99 08/27/25 13:00 128/84 (99) 08/27/25 08:00 Room Air* 0 21 Total Intake and Output 08/26/25 08/26/25 08/27/25 15:00 23:00 07:00 Intake Total 0 ml 200 ml Balance 0 ml 200 ml medications Current Medications Medications Dose Ordered Sig/Anne Route Start Time Stop Time Status Last Admin Dose Admin Acetaminophen 325 mg Q4HP PRN PO 08/24/25 23:45 08/27/25 05:00 325 MG Ondansetron HCl 4 mg Q4HP PRN IV 08/24/25 23:45 08/27/25 12:08 4 MG Enoxaparin Sodium 40 mg DAILY SC 08/25/25 10:00 08/27/25 10:22 40 MG Diagnostic Test (Pha) 1 strip Q6HR 08/25/25 00:00 08/27/25 12:21 1 STRIP Insulin Human Regular Q6HR SC 08/25/25 00:00 08/27/25 12:23 3 UNITS Dextrose 50 ml UD PRN IV 08/25/25 00:00 Sodium Chloride 1,000 ml @ 100 mls/hr Q10H IV 08/25/25 00:00 08/27/25 12:00 100 MLS/HR Ergocalciferol 50,000 unit Q7D PO 08/25/25 12:30 08/25/25 13:16 50,000 UNIT Sertraline HCl 25 mg DAILY PO 08/26/25 10:00 08/27/25 10:22 25 MG Doxycycline Hyclate 100 ml @ 50 mls/hr Q12H IV 08/25/25 17:00 08/27/25 04:37 50 MLS/HR Mupirocin 1 applic BID TOP 08/25/25 22:00 08/27/25 10:24 1 APPLIC Insulin Glargine 10 units HS SC 08/25/25 18:15 08/26/25 22:18 10 UNITS Hydromorphone HCl 0.25 mg Q4HR PRN IV 08/25/25 23:15 08/27/25 12:08 0.25 MG Examination General examination- awake, alert, not in acute distress HEENT- PEERLA, no acute nasal discharge Cardiovascular- S1-S2 audible, rate and rhythm regular, no murmur Respiratory- CTAB, no wheeze or rhonchi Gastrointestinal-nontender, bowel sound+. Nondistended Musculoskeletal-no acute joint swelling or tenderness or redness Lower extremity- no leg edema Neurological- cranial nerves intact, no acute dysarthria or dysphagia Psychiatry- denies depression or SI or HI Skin- no acute rash or purpura laboratory and microbiology Laboratory Tests 08/27/25 08:49 Test 08/27/25 08:49 Range/Units Serum Glucose 143 H 74-106 mg/dL Microbiology Date/Time Source Procedure Growth Status 08/25/25 07:52 Nose MRSA Screen - Final Methicillin Resistant S.aureus Complete 08/25/25 00:42 Blood Blood Culture - Preliminary NO GROWTH AFTER 48 HOURS OF INCUBATION. Resulted Problem List/Assessment/Plan Problem List/Assessment/Plan Assessment/Plan #Cellulitis/Folliculitis of buttocks #Probable reactive retroperitoneal lymphadenopathy -Completed abdomen and pelvis CT which shows retroperitoneal lymphadenopathy moderately enlarged bilateral inguinal lymph nodes, Probably reactive to cellulitis/folliculitis of buttocks -Ordered wound care and wound culture -Currently on doxycycline #Ruled out appendicitis/Cholecystitis/Nephrolithiasis Completed abdomen and pelvis CT which showed retroperitoneal lymphadenopathy and bilateral inguinal lymph nodes, no renal calculi or hydronephrosis and no other acute abdominal # suspected UTI UA-negative for UTI #Newly diagnosed diabetes (Hemoglobin A1C: 10.5%) Currently on insulin sliding scale Monitor blood sugar #Transaminitis #Hepatic steatosis -ALT and alkaline phosphatase mildly elevated Abdomen and pelvis CT shows hepatic steatosis Monitor on CMP Gave advice on healthy lifestyle habits, including weight loss #Morbid obesity Gave advice on healthy lifestyle habits #Moebius syndrome - s/p reconstructive surgery Monitor #Oligomenorrhea Follow up with junior project coordinator specialist as outpatient Ruled out #Asthma, no exacerbation Monitor #Depression Continue sertraline 25 mg p.o. daily Goals of care, Code status ; discussed with >15 minutes PUD prophylaxis: Pantoprazole DVT prophylaxis: Lovenox Plan discussed with Dr. Wheeler , nursing staff, Total time spent on patient evaluation, chart review, assessment and plan, discussion discussion >35 minutes Plan discussed with: Patient, Other (RN) My Orders My Orders Orders - MAINOR BRENNER Procedure Category Date Status Time * Life Coach CONS 08/26/25 Transmitted Consult * Life Coach CONS 08/27/25 Transmitted Consult Transfer Orders XFER 08/27/25 Transmitted 09:37 Communication Order ORDERS 08/27/25 Transmitted 09:39 Pt Request For Service PT 08/27/25 Logged 11:06 Dietary Evaluation Review Comments: 1) Refer Banking Specialist for diabetes education 2) Monitor PO intake, lab values, weight trend, and I/O Expected Outcomes/Goals: Intake to meet >75% estimated needs Lab values to improve Fu 3-5 days Date of Service: Aug 27, 2025 Billing Provider: DIEGO WHEELER MD Common Visit Codes: 69220-XAGEZTG INP/OBS CARE (HIGH) Secondary Visit Codes: 76096-[id number] CARE PLAN 30 MINUTES MAINOR BRENNER Aug 27, 2025 17:02
== END 2025-08-27 18:08 | disposition home or self-care (01) | DRG 249 ==
LOC: ER 20:10 → EDBD 20:10 → OVERFLOW 23:31 → TELE-EAST 08-26 14:05 → EAST 08-27 09:42
PROVIDERS: ADMIT Student in an Organized Health Care Education/Training Program; ATTEND Student in an Organized Health Care Education/Training Program
DX: A08.4 Viral intestinal infection, unspecified (principal); E11.65 Type 2 diabetes mellitus with hyperglycemia; L03.317 Cellulitis of buttock; E66.01 Morbid (severe) obesity due to excess calories; F32.A Depression, unspecified; N91.5 Oligomenorrhea, unspecified; L73.9 Follicular disorder, unspecified; J45.909 Unspecified asthma, uncomplicated; K76.0 Fatty (change of) liver, not elsewhere classified; R31.9 Hematuria, unspecified; F41.9 Anxiety disorder, unspecified; R59.0 Localized enlarged lymph nodes; R74.01 Elevation of levels of liver transaminase levels; Z79.2 Long term (current) use of antibiotics; Z88.1 Allergy status to other antibiotic agents; Z79.899 Other long term (current) drug therapy; Z68.41 Body mass index [BMI] 40.0-44.9, adult
CPT/HCPCS: 36415; 71045; 74150; 80053; 80061; 80307; 81001; 81025; 82306; 82607; 82962; 83036; 83605; 83690; 83735; 84100; 84443; 84702; 85025; 85610; 85730; 87040; 87081; 96372; 96374; 96375; 97163; G0378; J1815; J1885; J2405